=== PATIENT | female | born 1950 | race Caucasian/White ===

== ENCOUNTER 2018-02-17 12:27 | Day surgery (SDC) | END 2018-02-17 15:04 | disposition home or self-care (01) ==

== ENCOUNTER 2019-03-02 05:40 | Inpatient (IN) | payer OTHER ==
[2019-03-02] VITALS (31 sets, daily range): BP systolic 83–136; BP diastolic 49–78; PULSE 63–98; RESP 10–18; Ht 153.7 cm; Wt 56.9 kg
[~2019-03-02] VITALS: Ht 153.7 cm; Wt 56.9 kg
[~2019-03-02 05:40] MED LIST: ALENDRONATE PO
--- NOTE | 2019-03-02 06:22 | HPN ---
Date/Time of Note Date/Time of Note DATE: 03/02/19 TIME: 06:22 Interval H&P Admission Note Pt. seen H&P reviewed: No system changes GEORGE PARK MD March 02, 2019 06:22
[2019-03-02] MEDS ORDERED: ALEN70TA5 PO (06:54)
[2019-03-02] MEDS ORDERED: TRANEXAMIC ACID 1GM/100ML(PMX) 200 ML ONE (06:55)
[2019-03-02] MEDS ORDERED: POLYMYXIN B 500000 UNIT INJ ONE (06:55)
[2019-03-02] MEDS ORDERED: BACITRACIN 50000 UNITS INJ ONE (06:57)
[2019-03-02] MEDS ORDERED: TRANEXAMIC ACID 1GM/100ML(PMX) 100 ML PRE-OP X1 IVPB ONE (07:00)
[2019-03-02] MEDS ORDERED: HIP PAIN COCKTAIL VANCO INJ SCH ×7 (07:00)
[2019-03-02] MEDS ORDERED: LANSOPRAZOLE 30 MG CAP PO ONE (07:00)
[2019-03-02] MEDS ORDERED: DEXAMETHASONE 4 MG/ML 1 ML INJ IV ONE (07:00)
[2019-03-02] MEDS ORDERED: ONDANSETRON 4 MG INJ IV ONE (07:00)
[2019-03-02] MEDS ORDERED: ACETAMINOPHEN 500 MG TAB PO ONE (07:00)
[2019-03-02] MEDS ORDERED: CEFAZOLIN 1 GM/50 ML (PMX) 50 ML IVPB ONE (07:00)
[2019-03-02] MEDS ORDERED: LACTATED RINGER'S 1,000 ML IV SCH (07:00)
[2019-03-02] MEDS ORDERED: TRANEXAMIC ACID 1GM/100ML(PMX) 100 ML INTRA-OP X1 IVPB ONE (07:00)
[2019-03-02] MEDS ORDERED: oxyCODONE (CR) 10 MG TAB [oxyCONTIN] PO ONE (07:00)
--- NOTE | 2019-03-02 07:20 | PREAC ---
Date/Time of Note Date/Time of Note DATE: 03/02/19 TIME: Anesthesia Eval and Record Evaluation Time Pre-Procedure Interview DATE: 03/02/19 TIME: : Age 68 Sex female NPO: 8 hrs Preoperative diagnosis left hip primary OA Planned procedure left hip totalreplacemebnt Past Medical History Past Medical History: Includes GI: GERD Surgery & Anesthesia Issues No known issue Meds Anticoagulation: No Beta Rayshawn within 24 hr: No Reason Beta Rayshawn not given: Pt. not on B-Rayshawn Reported Medications Alendronate Sodium* (Fosamax*) 70 Mg Tablet, 70 MG PO EVERY THURSDAY, #4 TAB 03/02/19 Discontinued Reported Medications [Alendronate] No Conflict Check, PO WEEKLY 02/17/18 Current Medications Lactated Ringer's 1,000 ml @ 125 mls/hr Q8H IV Last administered on 03/02/19at 06:15; Admin Dose 125 MLS/HR; Start 03/02/19 at 07:00; Stop 03/02/19 at 14:59 Cefazolin Sodium 50 ml @ 100 mls/hr PRE-OP ONCE IVPB ; Start 03/02/19 at 07:00; Stop 03/02/19 at 07:29 Tranexamic Acid 100 ml @ 220 mls/hr PRE-OP ONCE IVPB ; Start 03/02/19 at 07:00; Stop 03/02/19 at 07:27 Tranexamic Acid 100 ml @ 200 mls/hr INTRA-OP ONCE IVPB ; Start 03/02/19 at 07:00; Stop 03/02/19 at 07:29 Ropivacaine/ Morphine Sulfate/ Clonidine HCl/ Epinephrine/ Ketorolac Tromethamine/ Vancomycin HCl/ Sodium Chloride INTRA-OP INJ ; Start 03/02/19 at 07:00 Meds reviewed: Yes Allergies Coded Allergies: No Known Allergy (Unverified , 03/02/19) Allergies Reviewed: Yes Labs/Studies Labs Reviewed: Reviewed by anesthesiologist test: N/A Studies: ECG (n/a), CXR (nl) Pre-procedure Exam Last vitals Vital Signs Date Temp Pulse Resp B/P (MAP) Pulse Ox O2 O2 Flow FiO2 Time Delivery Rate 03/02/19 97.9 65 17 136/78 99 Room Air 06:40 (97) Airway: Adequate mouth opening Mallampati: Mallampati I Teeth: Normal Lung: Normal Heart: Normal ASA Physical Status ASA physical status: 1 Emergency: None Planned Anesthetic General/MAC: ETT Neuraxial: Spinal Nerve block: Femoral (left) Planned Pain Management Single shot nerve block, Parenteral pain med Pre-operative Attestations Prior to commencing anesthesia and surgery, the patient was re-evaluated, there was verification of: *The patient's identity *The results of appropriate recent lab work and preoperative vital signs *The above evaluation not changing prior to induction *Anesthetic plan, risk benefits, alternative and complications discussed with patient/family; questions answered; patient/family understands, accepts and wishes to proceed. OK PAGAN MD March 02, 2019 07:20
[2019-03-02] MEDS ORDERED: morphine SULFATE/PF (10 MG/10 ML) INJ ONE (07:26)
[2019-03-02] MEDS ORDERED: PROPOFOL 20 ML ONE (07:26)
[2019-03-02] MEDS ORDERED: MIDAZOLAM 1 MG/ML 2 ML INJ ONE (07:26)
[2019-03-02] MEDS ORDERED: METOCLOPRAMIDE 10 MG INJ ONE (07:26)
[2019-03-02] MEDS ORDERED: CEFAZOLIN 1 GM INJ ONE (07:47)
[2019-03-02] MEDS ORDERED: ROPIVACAINE 0.5 % 30 ML VIAL ONE (07:48)
[2019-03-02] MEDS ORDERED: ONDANSETRON 4 MG INJ ONE (07:48)
[2019-03-02] MEDS ORDERED: FENTAnyl 50 MCG/ML VIAL ONE (07:48)
[2019-03-02] MEDS ORDERED: KETOROLAC 30 MG INJ ONE (07:48)
[2019-03-02] MEDS ORDERED: EPHEDrine 25 MG/5 ML SYG ONE ×2 (08:00→11:38)
[2019-03-02] MEDS ORDERED: DIPHENHYDRAMINE 50 MG INJ IV PRN (08:30)
[2019-03-02] MEDS ORDERED: HYDROmorphONE 1 MG/5 ML IV SYRINGE IV PRN ×3 (08:30)
[2019-03-02] MEDS ORDERED: MEPERIDINE 25 MG INJ IV PRN (08:30)
[2019-03-02] MEDS ORDERED: ONDANSETRON 4 MG INJ IV PRN (08:30)
[2019-03-02] MEDS ORDERED: FENTAnyl 50 MCG/ML VIAL IV PRN ×3 (08:30)
[2019-03-02] MEDS ORDERED: ALBUMIN HUMAN 5% 250 ML ONE ×2 (09:14→11:37)
--- NOTE | 2019-03-02 10:19 | SIPON ---
Date/Time of Note Date/Time of Note DATE: 03/02/19 TIME: 10:18 Operative Report Preoperative Diagnosis Left Hip Osteoarthritis Postoperative Diagnosis Same Operation/Procedure Performed Left Total Hip Arthroplasty Surgeon Jenny Park MD production assistant Vivek Arreola Second assist: CEDRIC ARREAGA Anesthesia: spinal Estimated blood loss: other Transfusion Required none Specimen bone Grafts/Implants none Complications none JENNY PARK MD March 02, 2019 10:19
--- NOTE | 2019-03-02 10:26 | OPR ---
Date/Time of Note Date/Time of Note DATE: 03/02/19 TIME: 10:23 Operative Report Free Text/Dictation DATE OF OPERATION: March 02, 2019 PREOPERATIVE DIAGNOSIS: Left hip osteoarthritis. POSTOPERATIVE DIAGNOSIS: Left hip osteoarthritis. PROCEDURES PERFORMED: 1. Left total hip arthroplasty. CPT code 78345. 2. Computer assisted navigational procedure, CPT code 29197. 3. Interpretation of AP Pelvis x-ray. 4. Interpretation of left hip, 2 views. SURGEON: George Park. ROLLER SETTER: 1. YUSRA Wick 2. Vivek Arreola. ANESTHESIOLOGIST: Dr. Simon ANESTHESIA: Spinal ESTIMATED BLOOD LOSS: 300 mL. COMPLICATIONS: None. SPECIMENS: Resected bone. DISPOSITION: PACU in stable condition. IMPLANT USED: A DePuy Corail size 11 stem, 36/+1.5 delta ceramic femoral head, 52 [place] Cup, 36 mm neutral liner, 20 mm cancellous screw. COMPLICATIONS: None. DISPOSITION: To PACU in stable condition. INDICATION FOR PROCEDURE: This is an 68 year-old female with endstage osteoarthritis of the left hip who had failed nonoperative management. Risks, benefits, alternatives of surgical intervention were discussed with the patient and informed consent was obtained. The risks of surgery include but are not limited to infection, deep venous thrombosis, pulmonary embolism, leg length discrepancy, fracture, damage to neurovascular structures requiring repair, loosening of the prosthesis, wear of prosthesis, need for revision surgery, heart attack, stroke, need for blood transfusion, risks associated with anesthesia and even . DESCRIPTION OF PROCEDURE: The patient was met in the preoperative suite and the correct operative site was confirmed and marked. Patient was then brought into operating room. After induction of general anesthesia, the patient was placed in the supine position on the table. The left lower extremity was prepped and draped in the usual sterile fashion. Before starting, a timeout was taken to identify the correct operative site, the patients name and medical record number and to confirm the preoperative antibiotics consisting of 1 gram of IV Ancef, along with 1 gram of tranexamic acid were administered. At this point, an 8 cm incision was made approximately 2 cm lateral and 1 cm distal to the ASIS. The incision was carried down to the fascia. The fascia was then incised. Then, 2 Allis clamps were placed. The interval was then bluntly developed and the tensor fascia maury was then retracted laterally. The lateral circumflex vessels were identified and coagulated. The anterior capsule was then visualized and a capsulotomy was performed. At this point, markings were made for the napkin ring osteotomy of the femoral neck. Using the saw the initial osteotomy was then made and completed with the use of an osteotome. A Maria Isabel was then used to remove the napkin ring and a corkscrew was then placed in the femoral head and the head was then removed. The head was sized to 50 mm. Sequential reaming was begun with a 45 mm reamer, going up to a 51 mm reamer. A trial 52 mm cup was then impacted and the radlink was then used to determine the appropriate anteversion and abduction of the cup. The cup was noted to be in approximately 42 degrees of inclination, and 19 degrees of anteversion. The trial was then removed. The appropriate size cup was then placed and again the radlink was used to determine the inclination and anteversion, and was noted be unchanged. At this point, a 20 mm screw was then placed in the posterior superior quadrant. The 36 mm liner was then impacted into place and the final acetabular x-rays were taken which again demonstrated the cup to be in appropriate abduction and anteversion. At this point, the femoral lift was then used and the leg was then placed in external rotation, extension, and adduction. Retractors were placed and the femoral releases were performed using a box osteotome followed by a canal finder. Sequential broaching was begun with a 8 broach going up to a size 11 broach. The trial 11 mm standard offset stem along with a 36/+1.5 trial head and neck were placed. The hip was then reduced and taken through range of motion, noted to be stable in extension and external rotation of up to 110 degrees. AP x-rays of the pelvis and left hip, 2 view x-rays were taken. The x-rays demonstrated the prosthesis to be in the correct position with equal leg lengths. The trial components were then removed. The appropriate sized components were then placed. The hip was again reduced with unchanged stability and equal leg lengths and no fractures were seen. The hip was again taken through range of motion and noted to be stable to extension and external rotation. The wound was then thoroughly irrigated. The capsule and the fascia were closed using #1 Stratafix. The subcutaneous tissue was closed using 2-0 Vicryl and the skin with 4-0 Monocryl in subcuticular fashion and Steri-Strips were applied. There were no complications. Patient was awakened and taken to postoperative care unit in stable condition. Prior to transfer, the patient was noted to have equal leg lengths and a palpable dorsalis pedis pulse. POSTOPERATIVE CARE: Patient will be weightbearing as tolerated. Patient will work with physical therapy, and receive multimodal pain management.. Patient will receive two additional doses of IV Ancef along with aspirin 81 mg p.o. b.i.d. for 6 weeks. Patient will have SCDs while in the hospital. Upon discharge, patient will follow up in my office within 2 weeks postoperatively. GEORGE PARK MD March 02, 2019 10:26
[2019-03-02] MEDS ORDERED: DOCUSATE SODIUM 100 MG CAP PO ONE (10:30)
[2019-03-02] MEDS ORDERED: KETOROLAC 15 MG INJ IV PRN (10:30)
[2019-03-02] MEDS ORDERED: NACL 0.9% 3 ML SYG IV SCH (10:30)
[2019-03-02] MEDS ORDERED: NALOXONE (0.4 MG/ML) INJ IV PRN (10:30)
[2019-03-02] MEDS: CEFAZOLIN 2 GM/50 ML (PMX) 50 ML IVPB SCH ×2 (10:57→18:56)
[2019-03-02] MEDS: ONDANSETRON 4 MG INJ IV SCH ×3 (10:57→22:11)
[2019-03-02] MEDS ORDERED: ALBUMIN HUMAN 5% 250 ML IV ONE (12:00)
[2019-03-02] MEDS ORDERED: EPHEDrine 25 MG/5 ML SYG IV PRN (12:00)
[2019-03-02] MEDS: GABAPENTIN 100 MG CAP PO SCH ×2 (13:36→21:43)
--- NOTE | 2019-03-02 14:42 | CONS ---
Assessment/Plan Assessment/Plan Hospital Course (Demo Recall) SUBJECTIVE: Lying in bed comfortably. Denies any dizziness, or discomfort. OBJECTIVE: Vital signs-see below PHYSICAL EXAM: Constitutional: Adequately built,not in acute distress. HEENT: Head atraumatic and normocephalic. Eyes: Extraocular muscles intact. Anicteric sclerae. Pupils equal bilaterally, reactive to light. NECK: Supple without lymph node. CHEST: Clear and good breath sounds equally. No wheezing. No rhonchi. HEART: S1, S2. Regular rate and rhythm. ABDOMEN: Soft/non tender with no rebound tenderness. Bowel sounds were present. EXTREMITIES: No cyanosis, clubbing or edema. NEUROLOGIC: Alert and oriented x3. No focal deficit. No sensory deficit. PSYCHOSOCIAL: No signs of depression. INTEGUMENTARY: No open wounds. ASSESSMENT AND PLAN:68 yo F w/ back surgery in 2007, left hip osteoarthritis, admitted for elective left total hip arthroplasty Left hip osteoarthritis, status post left total hip arthroplasty 03/02/2019 -dvt ppx,pain control -weightbearing per ortho/pt team Mild hypotension, likely postoperative hemodynamics -Patient is asymptomatic. Her EBL was only 300 mL. BP is improving. Continue monitoring. If blood pressure drops further, I have recommended obtaining a stat CBC and IV bolus. DVT prophylaxis: Aspirin twice daily per orthopedic team. Thank you for allowing us to partake in the care of this pleasant lady. Approximately 60 m spent on this consultation. Patient was seen in collaboration with Dr. Wilkinson. Consultation Date/Type/Reason Admit Date/Time March 02, 2019 at 05:40 Type of Consult Hospitalist medicine Reason for Consultation Postoperative: Medical management Requesting Provider: GEORGE PARK MD Date/Time of Note DATE: 03/02/19 TIME: 14:38 Hx of Present Illness 68-year-old female with 3 of back surgery in 2007, left hip osteoarthritis, admitted for elective left total hip arthroplasty. Patient underwent left total hip arthroplasty on 03/02/2019. Hospitalist consultation was requested postoperatively for co-medical management. At my encounter with the patient, patient denied chest pain, dizziness, headache, palpitation, shortness of breath, nausea, vomiting, numbness, tingling or other constitutional symptoms. A 12 point review of system was assessed and is negative other than what is mentioned in the HPI Past Medical History See HPI Home Meds Reported Medications Alendronate Sodium* (Fosamax*) 70 Mg Tablet, 70 MG PO EVERY THURSDAY, #4 TAB 03/02/19 Discontinued Reported Medications [Alendronate] No Conflict Check, PO WEEKLY 02/17/18 Medications Current Medications Lactated Ringer's 1,000 ml @ 125 mls/hr Q8H IV Last administered on 03/02/19at 06:15; Admin Dose 125 MLS/HR; Start 03/02/19 at 07:00; Stop 03/02/19 at 14:59 Ropivacaine/ Morphine Sulfate/ Clonidine HCl/ Epinephrine/ Ketorolac Tromethamine/ Vancomycin HCl/ Sodium Chloride INTRA-OP INJ Last administered on 03/02/19at 08:17; Admin Dose 115.5 ML; Start 03/02/19 at 07:00; Stop 03/02/19 at 16:00 Oxycodone HCl (Roxicodone) 5 mg Q4H PRN PO .PAIN; Start 03/02/19 at 10:30 Ondansetron HCl (Zofran Inj) 4 mg Q6H IV Last administered on 03/02/19at 10:57; Admin Dose 4 MG; Start 03/02/19 at 10:30; Stop 03/03/19 at 04:31 Cefazolin Sodium/ Dextrose 50 ml @ 100 mls/hr Q8H IVPB Last administered on 03/02/19at 10:57; Admin Dose 100 MLS/HR; Start 03/02/19 at 10:30; Stop 03/03/19 at 02:59 Celecoxib (Celebrex) 100 mg BID PO ; Start 03/03/19 at 09:00 Gabapentin (Neurontin) 100 mg TID PO Last administered on 03/02/19at 13:36; Admin Dose 100 MG; Start 03/02/19 at 13:00 Pantoprazole (Protonix Tab) 40 mg DAILY@06 PO ; Start 03/03/19 at 06:00 Ketorolac Tromethamine (Toradol) 15 mg Q6H PRN IV .PAIN; Start 03/02/19 at 10:30 Naloxone HCl (Narcan) 0.2 mg Q2M PRN IV .RESP RATE; Start 03/02/19 at 10:30 IV Flush (NS 3 ml) 3 ml per protocol IV ; Start 03/02/19 at 10:30 Aspirin (Halfprin) 81 mg BID PO ; Start 03/03/19 at 09:00 Ephedrine Sulfate 5 mg PACU ORDER PRN IV BLOOD PRESSURE SUPPORT Last administered on 03/02/19at 11:59; Admin Dose 5 MG; Start 03/02/19 at 12:00; Stop 03/02/19 at 17:00 Allergies: Coded Allergies: No Known Allergy (Unverified , 03/02/19) Past Surgical History See HPI Social History Denied history of alcohol, smoking or illicit drug use Smoking Status: Never smoker Exam/Review of Systems Exam Vitals Vital Signs Date Temp Pulse Resp B/P (MAP) Pulse Ox O2 O2 Flow FiO2 Time Delivery Rate 03/02/19 11 100/53 99 Nasal 3.0 12:14 (69) Cannula 03/02/19 72 12:09 03/02/19 98.2 11:56 Medications Medication Current Medications Lactated Ringer's 1,000 ml @ 125 mls/hr Q8H IV Last administered on 03/02/19at 06:15; Admin Dose 125 MLS/HR; Start 03/02/19 at 07:00; Stop 03/02/19 at 14:59 Ropivacaine/ Morphine Sulfate/ Clonidine HCl/ Epinephrine/ Ketorolac Tromethamine/ Vancomycin HCl/ Sodium Chloride INTRA-OP INJ Last administered on 03/02/19at 08:17; Admin Dose 115.5 ML; Start 03/02/19 at 07:00; Stop 03/02/19 at 16:00 Oxycodone HCl (Roxicodone) 5 mg Q4H PRN PO .PAIN; Start 03/02/19 at 10:30 Ondansetron HCl (Zofran Inj) 4 mg Q6H IV Last administered on 03/02/19at 10:57; Admin Dose 4 MG; Start 03/02/19 at 10:30; Stop 03/03/19 at 04:31 Cefazolin Sodium/ Dextrose 50 ml @ 100 mls/hr Q8H IVPB Last administered on 03/02/19at 10:57; Admin Dose 100 MLS/HR; Start 03/02/19 at 10:30; Stop 03/03/19 at 02:59 Celecoxib (Celebrex) 100 mg BID PO ; Start 03/03/19 at 09:00 Gabapentin (Neurontin) 100 mg TID PO Last administered on 03/02/19at 13:36; Admin Dose 100 MG; Start 03/02/19 at 13:00 Pantoprazole (Protonix Tab) 40 mg DAILY@06 PO ; Start 03/03/19 at 06:00 Ketorolac Tromethamine (Toradol) 15 mg Q6H PRN IV .PAIN; Start 03/02/19 at 10:30 Naloxone HCl (Narcan) 0.2 mg Q2M PRN IV .RESP RATE; Start 03/02/19 at 10:30 IV Flush (NS 3 ml) 3 ml per protocol IV ; Start 03/02/19 at 10:30 Aspirin (Halfprin) 81 mg BID PO ; Start 03/03/19 at 09:00 Ephedrine Sulfate 5 mg PACU ORDER PRN IV BLOOD PRESSURE SUPPORT Last administered on 03/02/19at 11:59; Admin Dose 5 MG; Start 03/02/19 at 12:00; Stop 03/02/19 at 17:00 MELVIN REDD NP March 02, 2019 14:42
[2019-03-03 02:17] VITALS: BP 110/56; PULSE 83; RESP 16
[2019-03-03] MEDS: CEFAZOLIN 2 GM/50 ML (PMX) 50 ML IVPB SCH (03:13)
[2019-03-03] MEDS: ONDANSETRON 4 MG INJ IV SCH (05:43)
[2019-03-03] MEDS: PANTOPRAZOLE (EC) 40 MG TAB PO SCH (05:44)
[2019-03-03 08:12] VITALS: BP 81/42; PULSE 64; RESP 18
[2019-03-03] MEDS: ASPIRIN (EC) 81 MG TAB PO SCH ×2 (09:48→21:00)
[2019-03-03] MEDS: CELECOXIB 100 MG CAP PO SCH ×2 (09:49→21:00)
[2019-03-03] MEDS: oxyCODONE 5 MG TAB PO PRN (09:49)
--- NOTE | 2019-03-03 11:22 | CONS ---
Assessment/Plan Assessment/Plan Hospital Course (Demo Recall) SUBJECTIVE: Lying in bed comfortably. Denies any dizziness, or discomfort. OBJECTIVE: Vital signs-see below PHYSICAL EXAM: Constitutional: Adequately built,not in acute distress. HEENT: Head atraumatic and normocephalic. Eyes: Extraocular muscles intact. Anicteric sclerae. Pupils equal bilaterally, reactive to light. NECK: Supple without lymph node. CHEST: Clear and good breath sounds equally. No wheezing. No rhonchi. HEART: S1, S2. Regular rate and rhythm. ABDOMEN: Soft/non tender with no rebound tenderness. Bowel sounds were present. EXTREMITIES: No cyanosis, clubbing or edema. NEUROLOGIC: Alert and oriented x3. No focal deficit. No sensory deficit. PSYCHOSOCIAL: No signs of depression. INTEGUMENTARY: No open wounds. ASSESSMENT AND PLAN:68 yo F w/ back surgery in 2007, left hip osteoarthritis, admitted for elective left total hip arthroplasty Left hip osteoarthritis, status post left total hip arthroplasty 03/02/2019 -dvt ppx,pain control -weightbearing per ortho/pt team Hypotension, mild likely postoperative hemodynamics. -Improving. Patient is symptomatic. Anemia with iron deficiency -IV iron x3 doses followed by oral replacement. DVT prophylaxis: Aspirin twice daily per orthopedic team. Disposition: Per orthopedic team. Patient was seen in collaboration with Dr. Wilkinson. Consultation Date/Type/Reason Admit Date/Time March 02, 2019 at 05:40 Initial Consult Date Type of Consult Hospitalist medicine Requesting Provider: GEORGE PARK MD Date/Time of Note DATE: 03/03/19 TIME: 11:21 Exam/Review of Systems Exam Vitals Vital Signs Date Temp Pulse Resp B/P (MAP) Pulse Ox O2 O2 Flow FiO2 Time Delivery Rate 03/03/19 98.0 64 18 81/42 (55) 94 Room Air 08:12 03/02/19 2.0 20:40 Intake and Output 03/02/19 03/02/19 03/03/19 1515:00 23:00 07:00 IntakeIntake Total 2000 ml 690 ml OutputOutput Total 300 ml 600 ml BalanceBalance 1700 ml 90 ml Results Result Diagram: 03/03/19 0439 03/03/19 0439 Results 24hrs Laboratory Tests Test 03/03/19 04:39 03/03/19 06:54 White Blood Count 8.4 Red Blood Count 2.19 L Hemoglobin 7.1 L Hematocrit 21.1 L Mean Corpuscular Volume 96.3 Mean Corpuscular Hemoglobin 32.4 Mean Corpuscular Hemoglobin Concent 33.6 Red Cell Distribution Width 14.0 Platelet Count 172 Mean Platelet Volume 10.8 H Immature Granulocytes % 0.400 Neutrophils % 83.0 H Lymphocytes % 6.2 L Monocytes % 10.4 Eosinophils % 0.0 Basophils % 0.0 Nucleated Red Blood Cells % 0.0 Immature Granulocytes # 0.030 Neutrophils # 7.0 Lymphocytes # 0.5 L Monocytes # 0.9 Eosinophils # 0.0 Basophils # 0.0 Nucleated Red Blood Cells # 0.0 Prothrombin Time 14.4 Prothrombin Time Ratio 1.1 INR International Normalized Ratio 1.11 Sodium Level 138 Potassium Level 4.2 Chloride Level 108 Carbon Dioxide Level 27 Anion Gap 3 L Blood Urea Nitrogen 15 Creatinine 0.53 Est Glomerular Filtrat Rate mL/min > 60 Glucose Level 96 Hemoglobin A1c 5.7 Calcium Level 8.2 L Iron Level < 10 L Total Iron Binding Capacity 235 L Percent Iron Saturation Triglycerides Level 41 Cholesterol Level 95 L LDL Cholesterol, Calculated 46 HDL Cholesterol 41 Cholesterol/HDL Ratio 2.3 Lab Scanned Report REFERENCE LAB Medications Medication Current Medications Oxycodone HCl (Roxicodone) 5 mg Q4H PRN PO .PAIN Last administered on 03/03/19at 09:49; Admin Dose 5 MG; Start 03/02/19 at 10:30 Celecoxib (Celebrex) 100 mg BID PO Last administered on 03/03/19at 09:49; Admin Dose 100 MG; Start 03/03/19 at 09:00 Gabapentin (Neurontin) 100 mg TID PO Last administered on 03/02/19at 21:43; Admin Dose 100 MG; Start 03/02/19 at 13:00; Status Hold Pantoprazole (Protonix Tab) 40 mg DAILY@06 PO Last administered on 03/03/19at 05:44; Admin Dose 40 MG; Start 03/03/19 at 06:00 Ketorolac Tromethamine (Toradol) 15 mg Q6H PRN IV .PAIN; Start 03/02/19 at 10:30 Naloxone HCl (Narcan) 0.2 mg Q2M PRN IV .RESP RATE; Start 03/02/19 at 10:30 IV Flush (NS 3 ml) 3 ml per protocol IV ; Start 03/02/19 at 10:30 Aspirin (Halfprin) 81 mg BID PO Last administered on 03/03/19at 09:48; Admin Dose 81 MG; Start 03/03/19 at 09:00 Ferric Sodium Gluconate Complex 125 mg/Sodium Chloride 100 ml @ 100 mls/hr DAILY@1300 IVPB ; Start 03/03/19 at 13:00; Stop 03/05/19 at 13:59 MELVIN REDD NP March 03, 2019 11:22
[2019-03-03] MEDS: SOD FERRIC GLUC COMPLX 125 MG in SOD CHLORIDE 0.9% 100 ML IVPB SCH (12:16)
--- NOTE | 2019-03-03 12:48 | PAC ---
Date/Time of Note Date/Time of Note DATE: 03/03/19 TIME: 12:48 Post-Anesthesia Notes Post-Anesthesia Note Last documented vital signs Vital Signs Date Temp Pulse Resp B/P (MAP) Pulse Ox O2 O2 Flow FiO2 Time Delivery Rate 03/03/19 98.0 64 18 81/42 (55) 94 Room Air 08:12 03/02/19 2.0 20:40 Activity: WNL Respiratory function: WNL Cardiovascular function: WNL Mental status: Baseline Pain reasonably controlled: Yes Hydration appropriate: Yes Nausea/Vomiting absent: No OK PAGAN MD March 03, 2019 12:48
--- NOTE | 2019-03-03 12:50 | OPPN ---
Date/Time of Note Date/Time of Note DATE: 03/03/19 TIME: 12:48 Anesthesia Follow up Anesthesia Follow up Last documented vital signs Vital Signs Date Temp Pulse Resp B/P (MAP) Pulse Ox O2 O2 Flow FiO2 Time Delivery Rate 03/03/19 98.0 64 18 81/42 (55) 94 Room Air 08:12 03/02/19 2.0 20:40 Respiratory function: WNL Cardiovascular function: WNL Comments A A 68 year female s/p GA, spinal duramorph for post op pain per surgeon POD#1 is doing well. No pain, N/V, itching, headache, neural deficit. care per surgery. OK PAGAN MD March 03, 2019 12:50
[2019-03-03 19:40] VITALS: BP 97/50; PULSE 95; RESP 18
[2019-03-04 02:00] VITALS: BP 107/53; PULSE 86; RESP 18
[2019-03-04] MEDS: oxyCODONE 5 MG TAB PO PRN (04:43)
[2019-03-04] MEDS: PANTOPRAZOLE (EC) 40 MG TAB PO SCH (06:16)
[2019-03-04 07:38] VITALS: BP 99/50; PULSE 86; RESP 18
[2019-03-04] MEDS: CELECOXIB 100 MG CAP PO SCH ×2 (08:37→20:21)
[2019-03-04] MEDS: ASPIRIN (EC) 81 MG TAB PO SCH ×2 (08:38→20:21)
[2019-03-04] MEDS: SOD FERRIC GLUC COMPLX 125 MG in SOD CHLORIDE 0.9% 100 ML IVPB SCH (13:17)
[2019-03-04 13:28] VITALS: BP 100/59; PULSE 82; RESP 18
--- NOTE | 2019-03-04 14:58 | CONS ---
Assessment/Plan Assessment/Plan Hospital Course (Demo Recall) SUBJECTIVE: Lying in bed comfortably. No acute discomfort. OBJECTIVE: Vital signs-see below PHYSICAL EXAM: Constitutional: Adequately built,not in acute distress. HEENT: Head atraumatic and normocephalic. Eyes: Extraocular muscles intact. Anicteric sclerae. Pupils equal bilaterally, reactive to light. NECK: Supple without lymph node. CHEST: Clear and good breath sounds equally. No wheezing. No rhonchi. HEART: S1, S2. Regular rate and rhythm. ABDOMEN: Soft/non tender with no rebound tenderness. Bowel sounds were present. EXTREMITIES: No cyanosis, clubbing or edema. NEUROLOGIC: Alert and oriented x3. No focal deficit. No sensory deficit. PSYCHOSOCIAL: No signs of depression. INTEGUMENTARY: No open wounds. ASSESSMENT AND PLAN:68 yo F w/ back surgery in 2007, left hip osteoarthritis, admitted for elective left total hip arthroplasty Left hip osteoarthritis, status post left total hip arthroplasty 03/02/2019 -dvt ppx,pain control -weightbearing per ortho/pt team Mild hypotension, likely postoperative hemodynamics -Resolved. Iron deficient anemia -Patient is given IV iron therapy. As such, she can be discharged w/ oral iron 3 times a day on discharge. DVT prophylaxis: Aspirin twice daily per orthopedic team. She is cleared from surgical standpoint for discharge. No indication for blood transfusion with today's hemoglobin per surgery recommendation. At this time, I recommend continuation of oral iron 3 times a day with orthopedic outpatient follow-up. Patient was seen in collaboration with Dr. Wilkinson. Consultation Date/Type/Reason Admit Date/Time March 02, 2019 at 05:40 Initial Consult Date Type of Consult Hospitalist medicine Requesting Provider: GEORGE PARK MD Date/Time of Note DATE: 03/04/19 TIME: 14:56 Exam/Review of Systems Exam Vitals Vital Signs Date Temp Pulse Resp B/P (MAP) Pulse Ox O2 O2 Flow FiO2 Time Delivery Rate 03/04/19 98.7 82 18 100/59 96 13:28 (73) 03/03/19 Room Air 08:12 03/02/19 2.0 20:40 Intake and Output 03/03/19 03/03/19 03/04/19 1515:00 23:00 07:00 IntakeIntake Total 460 ml 120 ml OutputOutput Total 500 ml 400 ml BalanceBalance -40 ml -280 ml Results Result Diagram: 03/04/19 0441 03/04/19 0441 Results 24hrs Laboratory Tests Test 03/04/19 04:41 White Blood Count 8.2 Red Blood Count 2.10 L Hemoglobin 6.7 *L Hematocrit 19.9 L Mean Corpuscular Volume 94.8 Mean Corpuscular Hemoglobin 31.9 Mean Corpuscular Hemoglobin Concent 33.7 Red Cell Distribution Width 14.2 Platelet Count 163 Mean Platelet Volume 10.6 H Immature Granulocytes % 0.500 H Neutrophils % 79.1 H Lymphocytes % 10.0 L Monocytes % 10.1 Eosinophils % 0.2 Basophils % 0.1 Nucleated Red Blood Cells % 0.0 Immature Granulocytes # 0.040 H Neutrophils # 6.5 Lymphocytes # 0.8 Monocytes # 0.8 Eosinophils # 0.0 Basophils # 0.0 Nucleated Red Blood Cells # 0.0 Prothrombin Time 14.5 Prothrombin Time Ratio 1.1 INR International Normalized Ratio 1.12 Sodium Level 141 Potassium Level 3.6 Chloride Level 109 Carbon Dioxide Level 28 Anion Gap 4 L Blood Urea Nitrogen 9 Creatinine 0.45 Est Glomerular Filtrat Rate mL/min > 60 Glucose Level 96 Calcium Level 8.0 L Medications Medication Current Medications Oxycodone HCl (Roxicodone) 5 mg Q4H PRN PO .PAIN Last administered on 03/04/19 04:43; Admin Dose 5 MG; Start 03/02/19 at 10:30 Celecoxib (Celebrex) 100 mg BID PO Last administered on 03/04/19 08:37; Admin Dose 100 MG; Start 03/03/19 at 09:00 Gabapentin (Neurontin) 100 mg TID PO Last administered on 03/02/19at 21:43; Admin Dose 100 MG; Start 03/02/19 at 13:00; Status Hold Pantoprazole (Protonix Tab) 40 mg DAILY@06 PO Last administered on 03/04/19at 06:16; Admin Dose 40 MG; Start 03/03/19 at 06:00 Ketorolac Tromethamine (Toradol) 15 mg Q6H PRN IV .PAIN Last administered on 03/03/19at 21:00; Admin Dose 15 MG; Start 03/02/19 at 10:30 Naloxone HCl (Narcan) 0.2 mg Q2M PRN IV .RESP RATE; Start 03/02/19 at 10:30 IV Flush (NS 3 ml) 3 ml per protocol IV ; Start 03/02/19 at 10:30 Aspirin (Halfprin) 81 mg BID PO Last administered on 03/04/19at 08:38; Admin Dose 81 MG; Start 03/03/19 at 09:00 Ferric Sodium Gluconate Complex 125 mg/Sodium Chloride 100 ml @ 100 mls/hr DAILY@1300 IVPB Last administered on 03/04/19at 13:17; Admin Dose 100 MLS/HR; Start 03/03/19 at 13:00; Stop 03/05/19 at 13:59 MELVIN REDD NP March 04, 2019 14:58
[2019-03-04 19:40] VITALS: BP 108/58; PULSE 92; RESP 18
[2019-03-05 01:45] VITALS: BP 102/56; PULSE 72; RESP 18
[2019-03-05] MEDS: PANTOPRAZOLE (EC) 40 MG TAB PO SCH (05:47)
[2019-03-05 09:00] VITALS: BP 117/64; PULSE 90; RESP 18
[2019-03-05 09:05] VITALS: BP 123/71; PULSE 65
[2019-03-05] MEDS: ASPIRIN (EC) 81 MG TAB PO SCH ×2 (09:31→20:53)
[2019-03-05] MEDS: CELECOXIB 100 MG CAP PO SCH ×2 (09:31→20:52)
[2019-03-05] MEDS: SOD FERRIC GLUC COMPLX 125 MG in SOD CHLORIDE 0.9% 100 ML IVPB SCH (12:53)
[2019-03-05] MEDS: DOCUSATE SODIUM 100 MG CAP PO SCH ×2 (12:55→20:52)
--- NOTE | 2019-03-05 13:43 | PDOCDIS ---
Discharge Instructions CONDITION [id number] Patient Condition: [id number] Stable HOME CARE INSTRUCTIONS: [id number] Diet Instructions: Ihyym4c Regular ACTIVITY: [id number] Activity Restrictions: [id number] Slowly Increase Activity Rest between Activity Avoid heavy lifting FOLLOW UP/APPOINTMENTS Follow-up Plan appt Dr Giles Harris 1wk GILSON MARIO MD March 05, 2019 13:43
[2019-03-05] MEDS ORDERED: ASPI-1044 PO (13:45)
[2019-03-05] MEDS ORDERED: GABA100C14 PO (13:45)
[2019-03-05] MEDS ORDERED: POLY17PO6 PO (13:45)
[2019-03-05] MEDS ORDERED: CELE100C PO (13:45)
[2019-03-05] MEDS ORDERED: DOCU-144 PO (13:45)
[2019-03-05] MEDS ORDERED: PANT40TA4 PO (13:45)
[2019-03-05] MEDS ORDERED: MAGNESIUM HYDROXIDE 30ML CUP PO ONE (14:00)
--- NOTE | 2019-03-05 14:50 | DS ---
Date/Time of Note Date/Time of Note DATE: 03/05/19 TIME: 14:49 Discharge Summary Admission/Discharge Info Admit Date/Time March 02, 2019 at 05:40 Discharge Date/Time Patient Condition: Stable Consults DR BEDOYA Procedures Left total hip arthroplasty Hx of Present Illness Needed for elective surgery Hospital Course Hospitalist coverage/hospital course Admitted and underwent elective left hip arthroplasty. Stable and fit for discharge home. Weightbearing as tolerated on aspirin for DVT prophylaxis Patient was seen to have anemia at [facility]-point 79. Patient was transfused 2 units. Home on iron. Constipation home on therapeutic long term Meds Active Scripts Polyethylene Glycol* (Miralax*) 17 Gm Powd.pack, 17 GM PO BID PRN for CONSTIPATION for 7 Days, #1 PACKET 4 Refills Prov:GILSON MARIO MD 03/05/19 Docusate Sodium* (Colace*) 100 Mg Capsule, 100 MG PO BID for 7 Days, #10 CAP 3 Refills Prov:GILSON MARIO MD 03/05/19 Pantoprazole* (Pantoprazole*) 40 Mg Tablet., 40 MG PO DAILY@06 for 10 Days, #10 Prov:GILSON MARIO MD 03/05/19 Gabapentin* (Gabapentin*) 100 Mg Capsule, 100 MG PO TID for 10 Days, #30 CAP Prov:GILSON MARIO MD 03/05/19 Celecoxib* (Celebrex*) 100 Mg Capsule, 100 MG PO BID for 10 Days, #20 CAP Prov:GILSON MARIO MD 03/05/19 Aspirin Delayed Release (Aspirin Delayed Release) 81 Mg Tablet., 81 MG PO BID for 28 Days, #30 1 Refill Prov:GILSON MARIO MD 03/05/19 Reported Medications Alendronate Sodium* (Fosamax*) 70 Mg Tablet, 70 MG PO EVERY THURSDAY, #4 TAB 03/02/19 Discontinued Reported Medications [Alendronate] No Conflict Check, PO WEEKLY 02/17/18 Follow-up Plan appt Dr Giles Harris 1wk Primary Care Provider Not On Staff Doctor Time spent on discharge: > 30 minutes Pending Labs Laboratory Tests Test 03/05/19 04:33 White Blood Count 6.5 10^3/ul (4.8-10.8) Red Blood Count 2.16 10^6/ul (4.20-5.40) Hemoglobin 6.9 g/dl (12.0-16.0) Hematocrit 20.8 % (37.0-47.0) Mean Corpuscular Volume 96.3 fl (82.0-101.0) Mean Corpuscular Hemoglobin 31.9 pg (29.0-33.0) Mean Corpuscular Hemoglobin Concent 33.2 g/dl (32.0-37.0) Red Cell Distribution Width 14.5 % (11.5-14.5) Platelet Count 186 10^3/UL (140-415) Mean Platelet Volume 11.0 fl (7.4-10.4) Immature Granulocytes % 0.500 % (0.001-0.429) Neutrophils % % (39.0-77.0) Segmented Neutrophils % (Manual) 75 % (39-77) Band Neutrophils % (Manual) 1 % (0-4) Lymphocytes % % (15.0-51.0) Lymphocytes % (Manual) 14 % (15-51) Monocytes % % (0.0-11.0) Monocytes % (Manual) 10 % (0-11) Eosinophils % % (0.0-7.0) Basophils % % (0.0-2.0) Nucleated Red Blood Cells % 0.0 /100WBC (0.0-0.0) Immature Granulocytes # 0.030 10^3/ul (0.0-0.031) Neutrophils # 10^3/ul (1.6-7.5) Neutrophils # (Manual) 4.9 10^3/ul (1.6-7.5) Band Neutrophils # 0.0 10^3/ul (0.0-0.6) Lymphocytes (Manual) 0.9 10^3/ul (0.8-2.9) Lymphocytes # 10^3/ul (0.8-2.9) Monocytes # 10^3/ul (0.3-0.9) Monocytes # (Manual) 0.6 10^3/ul (0.3-0.9) Eosinophils # 10^3/ul (0.0-0.5) Basophils # 10^3/ul (0.0-0.1) Nucleated Red Blood Cells # 10^3/ul (0.0-0.0) Platelet Estimate NORMAL Polychromasia 3+ (0-0) Poikilocytosis 1+ (0-0) Anisocytosis 1+ (0-0) Target Cells 1+ (0-0) Prothrombin Time 13.8 Sec (11.9-14.9) Prothrombin Time Ratio 1.1 INR International Normalized Ratio 1.05 Sodium Level 142 mmol/L (135-144) Potassium Level 3.9 mmol/L (3.5-5.1) Chloride Level 112 mmol/L (97-110) Carbon Dioxide Level 25 mmol/L (21-31) Anion Gap 5 (5-13) Blood Urea Nitrogen 7 mg/dl (7-20) Creatinine 0.39 mg/dl (0.44-1.00) Est Glomerular Filtrat Rate mL/min > 60 mL/min (>60) Glucose Level 89 mg/dl (70-220) Calcium Level 8.0 mg/dl (8.4-10.2) GILSON MARIO MD March 05, 2019 14:50
[2019-03-05 15:46] VITALS: BP 112/57; PULSE 80; RESP 18
[2019-03-05 19:30] VITALS: BP 121/67; PULSE 82; RESP 18
[2019-03-05 19:48] VITALS: BP 121/80; PULSE 80; RESP 20
[2019-03-05] MEDS: oxyCODONE 5 MG TAB PO PRN (20:52)
== END 2019-03-05 21:20 | disposition home health service (06) | DRG 470 ==
LOC: REC 05:40 → MS1 12:29
PROVIDERS: ADMIT Orthopaedic Surgery Adult Reconstructive Orthopaedic Surgery; ATTEND Orthopaedic Surgery Adult Reconstructive Orthopaedic Surgery
PROC: 0SRB03A Replacement of Left Hip Joint with Ceramic Synthetic Substitute, Uncemented, Open Approach (ICD-10-PCS; principal; 2019-03-02 07:30)
DX: M16.12 Unilateral primary osteoarthritis, left hip (principal); Z87.891 Personal history of nicotine dependence; I10 Essential (primary) hypertension; D50.9 Iron deficiency anemia, unspecified; Z79.82 Long term (current) use of aspirin
CPT/HCPCS: 36430; 72170; 73500; 73530; 80048; 80061; 83036; 83540; 85014; 85018; 85025; 85610; 86850; 86900; 86901; 86920; 97110; 97116; 97161; 97530; C1713; C1776; J0171; J0690; J1100; J1200; J1885; J2250; J2274; J2405; J2765; J2795; J2916; J3010; J3370; J7120; P9016; P9045